=== PATIENT | female | born 1970 | race Caucasian/White ===

== ENCOUNTER 2017-01-12 14:23 | Emergency (ER) | payer MEDICAID ==
[~2017-01-12 14:23] MED LIST: ALPARAZOLAM0.5 MG PO; LISINOPRIL10 MG PO; NEURONTIN100 MG PO; XANAX0.5 MG
[2017-01-12] MEDS ORDERED: GOOD NEIGHBOR200 M1 PO (14:38)
[2017-01-12 15:45] VITALS: BP 189/122
== END 2017-01-12 16:00 | disposition short-term general hospital (02) ==
LOC: ED 14:23
DX: I63.9 Cerebral infarction, unspecified (principal); R29.810 Facial weakness; R53.1 Weakness; I10 Essential (primary) hypertension

== ENCOUNTER 2017-05-01 11:00 | Outpatient (RCR) | payer MEDICAID ==
[~2017-05-01 11:00] MED LIST changes: +GOOD NEIGHBOR200 M1 PO
== END 2017-05-05 | disposition home or self-care (01) ==
LOC: OT
DX: I69.354 Hemiplegia and hemiparesis following cerebral infarction affecting left non-dominant side (principal); I69.812 Visuospatial deficit and spatial neglect following other cerebrovascular disease

== ENCOUNTER 2017-07-31 10:30 | Outpatient (RCR) | payer MEDICAID | END 2017-08-06 | disposition home or self-care (01) | LOC: OT | DX: I69.392 Facial weakness following cerebral infarction (principal) ==

== ENCOUNTER 2017-08-28 13:30 | Outpatient (RCR) | payer MEDICAID | END 2017-08-28 14:00 | disposition home or self-care (01) | LOC: OT 13:30 | DX: I69.954 Hemiplegia and hemiparesis following unspecified cerebrovascular disease affecting left non-dominant side (principal) ==

== ENCOUNTER 2017-10-30 09:00 | Outpatient (RCR) | payer MEDICAID | END 2017-10-30 10:00 | disposition home or self-care (01) | LOC: OT 09:00 | DX: I69.354 Hemiplegia and hemiparesis following cerebral infarction affecting left non-dominant side (principal) ==

== ENCOUNTER → 2017-12-21 | Outpatient (CLI) | payer MEDICAID | LOC: RAD 09:00 | DX: K80.20 Calculus of gallbladder without cholecystitis without obstruction (principal) ==

== ENCOUNTER 2018-07-02 19:14 | Emergency (ER) | payer MEDICAID ==
[~2018-07-02] VITALS: Ht 154.9 cm; Wt 65.9 kg
[2018-07-02 20:27] LABS: EOS # 0.1 (0.04-0.40); EOS % 1.1 % (1.0-5.0); HEMATOCRIT 42.9 % (37.0-47.0); HEMOGLOBIN 14.4 g/dL (12.5-16.0); LYMPH# 2.5 (1.50-4.00); MEAN CELL VOLUME 83 fl (78-100); MEAN CORPUSCULAR HEMOGLOBIN 28 pg (27-31); MEAN CORPUSCULAR HGB CONC 34 g/dL (33-37); MEAN PLATELET VOLUME 10.8 fl (7.4-10.4); MONO # 0.9 (0.20-0.80); NEU # 7.8 (1.40-6.50); PLATELET COUNT 266 K/mm3 (130-400); RED BLOOD COUNT 5.16 M/mm3 (4.10-5.30); RED CELL DISTRIBUTION WIDTH 13.7 % (11.5-14.5); WHITE BLOOD COUNT 11.4 K/mm3 (4.8-10.8)
[2018-07-02 21:05] LABS: CALCIUM 8.8 mg/dL (8.4-10.2); POTASSIUM 3.6 mmol/L (3.6-5.0); TOTAL BILIRUBIN 0.5 mg/dL (0.2-1.3); TOTAL PROTEIN 6.9 g/dL (6.3-8.2)
[2018-07-02 21:20] LABS: PARTIAL THROMBOPLASTIN TIME 22.7 SECONDS (21.0-32.0); PROTHROMBIN TIME 9.8 SECONDS (9.0-12.0)
[2018-07-02 22:30] VITALS: BP 169/106
== END 2018-07-02 22:30 | disposition short-term general hospital (02) ==
LOC: ED 19:14
PROVIDERS: Family Medicine
DX: I63.9 Cerebral infarction, unspecified (principal); G81.94 Hemiplegia, unspecified affecting left nondominant side; R40.2412 Glasgow coma scale score 13-15, at arrival to emergency department; I10 Essential (primary) hypertension; E78.5 Hyperlipidemia, unspecified; Q85.00 Neurofibromatosis, unspecified; Z79.82 Long term (current) use of aspirin; Z79.899 Other long term (current) drug therapy; F17.200 Nicotine dependence, unspecified, uncomplicated
CPT/HCPCS: J0595

== ENCOUNTER 2018-11-24 15:30 | Outpatient (RCR) | payer MEDICAID | END 2018-11-24 16:00 | disposition still patient (30) | LOC: OT 15:30 | DX: I69.354 Hemiplegia and hemiparesis following cerebral infarction affecting left non-dominant side (principal); R29.6 Repeated falls; Z91.81 History of falling ==

== ENCOUNTER 2019-01-18 14:57 | Emergency (ER) | payer MEDICAID ==
[~2019-01-18 14:57] MED LIST changes: -ECOTRIN325 M1; -LOSARTAN POTASS25 MG PO
[2019-01-18 16:27] LABS: URINE APPEARANCE HAZY; URINE BILIRUBIN NEGATIVE (NEGATIVE); URINE COLOR YELLOW; URINE GLUCOSE NEGATIVE (NEGATIVE); URINE KETONE NEGATIVE (NEGATIVE); URINE PROTEIN(semi-quant) TRACE mg/dL (NEGATIVE)
[2019-01-18 16:28] LABS: URINE BLOOD TRACE (NEGATIVE); URINE LEUKOCYTE ESTERASE NEGATIVE (NEGATIVE); URINE NITRATE POSITIVE (NEGATIVE); URINE UROBILINOGEN NORMAL (NORMAL); URINE WBC 0-1 /hpf (0-3)
[2019-01-18] MEDS ORDERED: LOSARTAN POTASS25 MG PO (17:53)
[2019-01-18] MEDS ORDERED: ECOTRIN325 M1 (17:53)
[2019-01-18 17:57] VITALS: BP 119/80
== END 2019-01-18 17:38 | disposition short-term general hospital (02) ==
LOC: ED 14:57
PROVIDERS: Nurse Practitioner
DX: K85.90 Acute pancreatitis without necrosis or infection, unspecified (principal); E86.0 Dehydration; E78.5 Hyperlipidemia, unspecified; Z79.82 Long term (current) use of aspirin; Z88.5 Allergy status to narcotic agent; Z88.0 Allergy status to penicillin; Z87.891 Personal history of nicotine dependence; Z86.73 Personal history of transient ischemic attack (TIA), and cerebral infarction without residual deficits; Z86.69 Personal history of other diseases of the nervous system and sense organs
CPT/HCPCS: J2405; J3010; J7030; Q9967

== ENCOUNTER → 2019-01-18 | Outpatient (CLI) | payer MEDICAID ==
[~2019-01-18] MED LIST changes: +ECOTRIN325 M1; +LOSARTAN POTASS25 MG PO
[2019-01-18 13:01] LABS: EOS # 0.2 (0.04-0.40); EOS % 1.5 % (1.0-5.0); HEMATOCRIT 42.6 % (37.0-47.0); HEMOGLOBIN 14.1 g/dL (12.5-16.0); LYMPH# 1.5 (1.50-4.00); MEAN CELL VOLUME 83 fl (78-100); MEAN CORPUSCULAR HEMOGLOBIN 27 pg (27-31); MEAN CORPUSCULAR HGB CONC 33 g/dL (33-37); MEAN PLATELET VOLUME 9.4 fl (7.4-10.4); MONO # 0.8 (0.20-0.80); PLATELET COUNT 210 K/mm3 (130-400); RED BLOOD COUNT 5.14 M/mm3 (4.10-5.30); RED CELL DISTRIBUTION WIDTH 14.1 % (11.5-14.5); WHITE BLOOD COUNT 10.5 K/mm3 (4.8-10.8)
[2019-01-18 13:16] LABS: ALBUMIN 3.8 g/dL (3.5-5.0); CALCIUM 8.9 mg/dL (8.4-10.2); POTASSIUM 3.6 mmol/L (3.6-5.0); TOTAL BILIRUBIN 0.9 mg/dL (0.2-1.3); TOTAL PROTEIN 6.9 g/dL (6.3-8.2)
== END ==
LOC: RAD 12:36
PROVIDERS: Nurse Practitioner
DX: R10.13 Epigastric pain (principal)

== ENCOUNTER → 2019-01-26 | Outpatient (CLI) | payer MEDICAID ==
[2019-01-18 17:57] VITALS: BP 119/80
[~2019-01-26] MED LIST changes: +ECOTRIN325 M1; +LOSARTAN POTASS25 MG PO
== END ==
LOC: RAD 08:59
DX: M25.562 Pain in left knee (principal)

== ENCOUNTER 2019-03-30 19:49 | Emergency (ER) | payer MEDICAID ==
[~2019-03-30] VITALS: Ht 154.9 cm; Wt 61.4 kg
[2019-03-30] MEDS ORDERED: LIPITOR 80MG80 MG PO (20:06)
[2019-03-30] MEDS ORDERED: ZOLOFT 50MG50 MG PO (20:06)
[2019-03-30 20:36] LABS: EOS # 0.1 (0.04-0.40); EOS % 1.3 % (1.0-5.0); HEMATOCRIT 42.8 % (37.0-47.0); HEMOGLOBIN 14.5 g/dL (12.5-16.0); LYMPH# 1.9 (1.50-4.00); MEAN CELL VOLUME 84 fl (78-100); MEAN CORPUSCULAR HEMOGLOBIN 29 pg (27-31); MEAN CORPUSCULAR HGB CONC 34 g/dL (33-37); MEAN PLATELET VOLUME 10.2 fl (7.4-10.4); MONO # 0.8 (0.20-0.80); NEU # 6.7 (1.40-6.50); PLATELET COUNT 225 K/mm3 (130-400); RED BLOOD COUNT 5.09 M/mm3 (4.10-5.30); RED CELL DISTRIBUTION WIDTH 13.5 % (11.5-14.5); WHITE BLOOD COUNT 9.6 K/mm3 (4.8-10.8)
[2019-03-30 20:41] LABS: ALBUMIN 3.5 g/dL (3.5-5.0)
[2019-03-30 20:42] LABS: SODIUM 141 mmol/L (136-145)
[2019-03-30 20:43] LABS: CALCIUM 9.2 mg/dL (8.3-10.5)
[2019-03-30 20:44] LABS: GLUCOSE 105 mg/dL (65-105); TOTAL PROTEIN 6.7 g/dL (6.4-8.3)
[2019-03-30 20:45] LABS: CARBON DIOXIDE 26 mmol/L (22-29)
[2019-03-30 20:46] LABS: TOTAL BILIRUBIN 0.5 mg/dL (0.2-1.2)
[2019-03-30 20:48] LABS: PROTHROMBIN TIME 9.9 SECONDS (9.0-12.0)
[2019-03-30 20:49] LABS: AST-SGOT 25 U/L (5-34)
[2019-03-30 20:50] LABS: ALT/SGPT 24 U/L (0-55)
[2019-03-30 20:59] LABS: TROPONIN-I < 0.03 ng/mL (<0.030)
[2019-03-30 22:15] VITALS: BP 131/98
== END 2019-03-30 22:15 | disposition home or self-care (01) ==
LOC: ED 19:49
PROVIDERS: Physician Assistant
DX: G43.909 Migraine, unspecified, not intractable, without status migrainosus (principal); F17.210 Nicotine dependence, cigarettes, uncomplicated; Z86.73 Personal history of transient ischemic attack (TIA), and cerebral infarction without residual deficits; Z79.82 Long term (current) use of aspirin; Z88.0 Allergy status to penicillin
CPT/HCPCS: J1885

== ENCOUNTER 2019-04-21 23:31 | Emergency (ER) | payer MEDICAID ==
[~2019-04-21 23:31] MED LIST changes: -CLINDAMYCIN 300MG PO; -CLONIDINE HYDR0.1 MG PO; -PERCOCET 325 MG1 TA2 PO
[2019-04-22] MEDS ORDERED: PERCOCET 325 MG1 TA2 PO (01:26)
[2019-04-22] MEDS ORDERED: CLINDAMYCIN 300MG PO (01:26)
[2019-04-22] MEDS ORDERED: CLONIDINE HYDR0.1 MG PO (02:16)
[2019-04-22 02:24] VITALS: BP 154/98
== END 2019-04-22 02:24 | disposition home or self-care (01) ==
LOC: ED 23:31
DX: K02.9 Dental caries, unspecified (principal); K05.219 Aggressive periodontitis, localized, unspecified severity; I10 Essential (primary) hypertension; G43.909 Migraine, unspecified, not intractable, without status migrainosus; Z87.891 Personal history of nicotine dependence; Z86.73 Personal history of transient ischemic attack (TIA), and cerebral infarction without residual deficits; Z79.82 Long term (current) use of aspirin
CPT/HCPCS: J1885

== ENCOUNTER → 2019-04-21 | Outpatient (CLI) | payer MEDICAID ==
[2019-03-30 22:15] VITALS: BP 131/98
[~2019-04-21] MED LIST changes: +CLINDAMYCIN 300MG PO; +CLONIDINE HYDR0.1 MG PO; -ECOTRIN325 M1; +ECOTRIN325 M1 PO; +LIPITOR 80MG80 MG PO; +PERCOCET 325 MG1 TA2 PO; +ZOLOFT 50MG50 MG PO
== END ==
LOC: RAD 11:28
DX: N91.2 Amenorrhea, unspecified (principal)

== ENCOUNTER 2019-05-06 13:00 | Outpatient (RCR) | payer MEDICAID ==
[~2019-05-06 13:00] MED LIST changes: +CLINDAMYCIN 300MG PO; +CLONIDINE HYDR0.1 MG PO; +PERCOCET 325 MG1 TA2 PO
== END 2019-05-06 13:33 | disposition still patient (30) ==
LOC: PT 13:00
DX: M25.512 Pain in left shoulder (principal)

== ENCOUNTER 2019-05-19 15:00 | Emergency (ER) | payer MEDICAID ==
[~2019-05-19] VITALS: Ht 154.9 cm; Wt 71.8 kg
[2019-05-19 15:38] LABS: EOS # 0.1 (0.04-0.40); EOS % 1.2 % (1.0-5.0); HEMATOCRIT 42.6 % (37.0-47.0); HEMOGLOBIN 14.4 g/dL (12.5-16.0); LYMPH# 1.7 (1.50-4.00); MEAN CELL VOLUME 86 fl (78-100); MEAN CORPUSCULAR HEMOGLOBIN 29 pg (27-31); MEAN CORPUSCULAR HGB CONC 34 g/dL (33-37); MEAN PLATELET VOLUME 9.7 fl (7.4-10.4); MONO # 0.8 (0.20-0.80); NEU # 5.3 (1.40-6.50); PLATELET COUNT 191 K/mm3 (130-400); RED BLOOD COUNT 4.96 M/mm3 (4.10-5.30); WHITE BLOOD COUNT 8.1 K/mm3 (4.8-10.8)
[2019-05-19 15:47] LABS: ALBUMIN 3.7 g/dL (3.5-5.0); POTASSIUM 4.2 mmol/L (3.5-5.1)
[2019-05-19 15:49] LABS: TOTAL PROTEIN 7.3 g/dL (6.4-8.3)
[2019-05-19 15:51] LABS: TOTAL BILIRUBIN 0.7 mg/dL (0.2-1.2)
[2019-05-19 17:43] VITALS: BP 137/90
[2019-05-19] MEDS ORDERED: NORCO 325 MG-51 TA1 PO (17:49)
== END 2019-05-19 18:02 | disposition home or self-care (01) ==
LOC: ED 15:00
PROVIDERS: Nurse Practitioner Family
DX: M25.512 Pain in left shoulder (principal); I10 Essential (primary) hypertension; G43.909 Migraine, unspecified, not intractable, without status migrainosus; Z79.82 Long term (current) use of aspirin; Z91.14 Patient's other noncompliance with medication regimen; Z87.891 Personal history of nicotine dependence; Z86.73 Personal history of transient ischemic attack (TIA), and cerebral infarction without residual deficits
CPT/HCPCS: J1885

== ENCOUNTER 2019-06-14 20:04 | Emergency (ER) | payer MEDICAID ==
[~2019-06-14 20:04] MED LIST changes: +NORCO 325 MG-51 TA1 PO
[2019-06-14] MEDS ORDERED: AMLODIPINE BESYL5 MG PO (20:18)
[2019-06-14 20:41] LABS: EOS # 0.3 (0.04-0.40); EOS % 2.9 % (1.0-5.0); HEMATOCRIT 43.1 % (37.0-47.0); HEMOGLOBIN 14.6 g/dL (12.5-16.0); LYMPH# 2.2 (1.50-4.00); MEAN CELL VOLUME 84 fl (78-100); MEAN CORPUSCULAR HEMOGLOBIN 29 pg (27-31); MEAN CORPUSCULAR HGB CONC 34 g/dL (33-37); MEAN PLATELET VOLUME 9.7 fl (7.4-10.4); MONO # 0.8 (0.20-0.80); NEU # 6.1 (1.40-6.50); PLATELET COUNT 230 K/mm3 (130-400); RED BLOOD COUNT 5.12 M/mm3 (4.10-5.30); RED CELL DISTRIBUTION WIDTH 12.8 % (11.5-14.5); WHITE BLOOD COUNT 9.4 K/mm3 (4.8-10.8)
[2019-06-14 20:51] LABS: ALBUMIN 3.7 g/dL (3.5-5.0); POTASSIUM 3.5 mmol/L (3.5-5.1); SODIUM 141 mmol/L (136-145)
[2019-06-14 20:52] LABS: CALCIUM 9.1 mg/dL (8.3-10.5)
[2019-06-14 20:53] LABS: GLUCOSE 119 mg/dL (65-105)
[2019-06-14 20:54] LABS: TOTAL PROTEIN 6.8 g/dL (6.4-8.3)
[2019-06-14 20:55] LABS: CARBON DIOXIDE 24 mmol/L (22-29); TOTAL BILIRUBIN 0.6 mg/dL (0.2-1.2)
[2019-06-14 20:59] LABS: AST-SGOT 11 U/L (5-34)
[2019-06-14 21:00] LABS: ALT/SGPT 16 U/L (0-55)
[2019-06-14 21:07] LABS: TROPONIN-I < 0.03 ng/mL (<0.030)
[2019-06-14 22:08] LABS: PH-URINE 5.5 (5.0 - 8.0); URINE APPEARANCE HAZY; URINE BILIRUBIN NEGATIVE (NEGATIVE); URINE BLOOD TRACE (NEGATIVE); URINE COLOR YELLOW; URINE GLUCOSE NEGATIVE (NEGATIVE); URINE KETONE NEGATIVE (NEGATIVE); URINE LEUKOCYTE ESTERASE TRACE (NEGATIVE); URINE MUCUS PRESENT (NOT PRESENT); URINE NITRATE NEGATIVE (NEGATIVE); URINE PROTEIN(semi-quant) TRACE mg/dL (NEGATIVE); URINE UROBILINOGEN NORMAL (NORMAL)
[2019-06-14 23:30] VITALS: BP 155/103
== END 2019-06-14 23:30 | disposition short-term general hospital (02) ==
LOC: ED 20:04
PROVIDERS: Nurse Practitioner Family
DX: I63.9 Cerebral infarction, unspecified (principal); I10 Essential (primary) hypertension; F41.9 Anxiety disorder, unspecified; G43.909 Migraine, unspecified, not intractable, without status migrainosus; F17.210 Nicotine dependence, cigarettes, uncomplicated; Z98.890 Other specified postprocedural states
CPT/HCPCS: J2997; J7030

== ENCOUNTER 2019-07-28 11:00 | Outpatient (RCR) | payer MEDICAID ==
[~2019-07-28 11:00] MED LIST changes: +AMLODIPINE BESYL5 MG PO; +CLOPIDOGREL75 M2 PO
== END 2019-08-04 | disposition still patient (30) ==
LOC: OT
DX: I63.411 Cerebral infarction due to embolism of right middle cerebral artery (principal); Z91.81 History of falling

== ENCOUNTER → 2019-08-18 | Outpatient (RCR) | payer MEDICAID | END | disposition still patient (30) | LOC: PT | DX: G81.94 Hemiplegia, unspecified affecting left nondominant side (principal); W19.XXXA Unspecified fall, initial encounter ==

== ENCOUNTER → 2019-08-30 | Outpatient (CLI) | payer MEDICAID ==
[2019-06-30 18:23] VITALS: BP 125/86
[2019-08-30 14:14] LABS: EOS # 0.1 (0.04-0.40); EOS % 0.9 % (1.0-5.0); HEMATOCRIT 44.4 % (37.0-47.0); HEMOGLOBIN 14.8 g/dL (12.5-16.0); LYMPH# 1.5 (1.50-4.00); MEAN CELL VOLUME 84 fl (78-100); MEAN CORPUSCULAR HEMOGLOBIN 28 pg (27-31); MEAN CORPUSCULAR HGB CONC 33 g/dL (33-37); MEAN PLATELET VOLUME 9.5 fl (7.4-10.4); MONO # 0.6 (0.20-0.80); NEU # 5.2 (1.40-6.50); PLATELET COUNT 217 K/mm3 (130-400); RED CELL DISTRIBUTION WIDTH 12.4 % (11.5-14.5); WHITE BLOOD COUNT 7.4 K/mm3 (4.8-10.8)
[2019-08-30 14:29] LABS: POTASSIUM 4.1 mmol/L (3.5-5.1)
[2019-08-30 14:30] LABS: ALBUMIN 4.1 g/dL (3.5-5.0)
[2019-08-30 14:31] LABS: CALCIUM 9.8 mg/dL (8.3-10.5)
[2019-08-30 14:32] LABS: TOTAL PROTEIN 7.3 g/dL (6.4-8.3)
== END ==
LOC: LAB 14:03
PROVIDERS: Physician Assistant
DX: Z13.29 Encounter for screening for other suspected endocrine disorder (principal); Z13.220 Encounter for screening for lipoid disorders; I69.354 Hemiplegia and hemiparesis following cerebral infarction affecting left non-dominant side; K21.9 Gastro-esophageal reflux disease without esophagitis; G89.4 Chronic pain syndrome; I10 Essential (primary) hypertension; Q85.01 Neurofibromatosis, type 1

== ENCOUNTER → 2019-09-07 | Outpatient (CLI) | payer MEDICAID ==
[2019-06-30 18:23] VITALS: BP 125/86
== END ==
LOC: MAMMO 10:32
DX: Z12.31 Encounter for screening mammogram for malignant neoplasm of breast (principal)

== ENCOUNTER 2019-10-04 14:30 | Outpatient (RCR) | payer MEDICAID ==
[2019-06-30 18:23] VITALS: BP 125/86
== END 2019-12-04 | disposition still patient (30) ==
LOC: SPEECH
DX: I63.9 Cerebral infarction, unspecified (principal); I69.354 Hemiplegia and hemiparesis following cerebral infarction affecting left non-dominant side

== ENCOUNTER 2019-10-27 13:00 | Outpatient (RCR) | payer MEDICAID ==
[2019-06-30 18:23] VITALS: BP 125/86
== END 2019-11-22 | disposition still patient (30) ==
LOC: PT
DX: G81.94 Hemiplegia, unspecified affecting left nondominant side (principal); W19.XXXA Unspecified fall, initial encounter

== ENCOUNTER 2019-10-27 13:30 | Outpatient (RCR) | payer MEDICAID ==
[2019-06-30 18:23] VITALS: BP 125/86
== END 2019-11-08 | disposition still patient (30) ==
LOC: OT
DX: I63.411 Cerebral infarction due to embolism of right middle cerebral artery (principal); Z91.81 History of falling

== ENCOUNTER 2019-11-21 12:52 | Emergency (ER) | payer MEDICAID ==
[~2019-11-21] VITALS: Ht 170.2 cm; Wt 74.1 kg
[2019-11-21 13:10] LABS: EOS # 0.1 (0.04-0.40); EOS % 0.9 % (1.0-5.0); HEMATOCRIT 43.4 % (37.0-47.0); HEMOGLOBIN 14.5 g/dL (12.5-16.0); LYMPH# 2.1 (1.50-4.00); MEAN CELL VOLUME 86 fl (78-100); MEAN CORPUSCULAR HEMOGLOBIN 29 pg (27-31); MEAN CORPUSCULAR HGB CONC 33 g/dL (33-37); MEAN PLATELET VOLUME 9.9 fl (7.4-10.4); MONO # 0.8 (0.20-0.80); NEU # 5.8 (1.40-6.50); PLATELET COUNT 204 K/mm3 (130-400); RED BLOOD COUNT 5.05 M/mm3 (4.10-5.30); RED CELL DISTRIBUTION WIDTH 13.4 % (11.5-14.5); WHITE BLOOD COUNT 8.9 K/mm3 (4.8-10.8)
[2019-11-21 13:20] LABS: ALBUMIN 3.9 g/dL (3.5-5.0); POTASSIUM 3.8 mmol/L (3.5-5.1)
[2019-11-21 13:22] LABS: CALCIUM 9.2 mg/dL (8.3-10.5)
[2019-11-21 13:23] LABS: TOTAL PROTEIN 6.8 g/dL (6.4-8.3)
[2019-11-21 13:25] LABS: TOTAL BILIRUBIN 0.5 mg/dL (0.2-1.2)
[2019-11-21 14:36] VITALS: BP 131/92
== END 2019-11-21 14:48 | disposition home or self-care (01) ==
LOC: ED 12:52
PROVIDERS: Nurse Practitioner Primary Care
DX: G45.9 Transient cerebral ischemic attack, unspecified (principal); I10 Essential (primary) hypertension; F41.9 Anxiety disorder, unspecified; F17.210 Nicotine dependence, cigarettes, uncomplicated; Z79.02 Long term (current) use of antithrombotics/antiplatelets; Z86.73 Personal history of transient ischemic attack (TIA), and cerebral infarction without residual deficits

== ENCOUNTER → 2019-12-01 | Outpatient (CLI) | payer MEDICAID ==
[2019-11-21 14:36] VITALS: BP 131/92
== END ==
LOC: RAD 11-23 08:30
DX: G93.81 Temporal sclerosis (principal); I67.82 Cerebral ischemia; G45.9 Transient cerebral ischemic attack, unspecified
CPT/HCPCS: A9585

== ENCOUNTER → 2020-01-31 | Outpatient (CLI) | payer MEDICAID ==
[2020-02-03 02:27] LABS: BETA-2GPI IGG AABS <20.0 CU (<=20.0); BETA-2GPI IGM AABS <20.0 CU (<=20.0)
== END ==
LOC: LAB 15:21
PROVIDERS: Nurse Practitioner
DX: I63.411 Cerebral infarction due to embolism of right middle cerebral artery (principal); G43.009 Migraine without aura, not intractable, without status migrainosus

== ENCOUNTER → 2020-02-16 | Outpatient (CLI) | payer OTHER, MEDICAID | LOC: RAD 17:59 | DX: M79.89 Other specified soft tissue disorders (principal) ==

== ENCOUNTER → 2020-03-27 | Outpatient (CLI) | payer MEDICAID ==
[2020-02-23 20:02] VITALS: BP 121/96
[~2020-03-27] MED LIST changes: +CYMBALTA60 M1 PO; +VITAMIN D3 COM1 EACH PO
[2020-03-27 14:05] LABS: EOS # 0.1 (0.04-0.40); EOS % 1.2 % (1.0-5.0); HEMATOCRIT 44.5 % (37.0-47.0); LYMPH# 1.7 (1.50-4.00); MEAN CELL VOLUME 86 fl (78-100); MEAN CORPUSCULAR HEMOGLOBIN 29 pg (27-31); MEAN CORPUSCULAR HGB CONC 34 g/dL (33-37); MEAN PLATELET VOLUME 9.7 fl (7.4-10.4); MONO # 1.1 (0.20-0.80); NEU # 7.7 (1.40-6.50); PLATELET COUNT 256 K/mm3 (130-400); RED BLOOD COUNT 5.15 M/mm3 (4.10-5.30); RED CELL DISTRIBUTION WIDTH 13.5 % (11.5-14.5); WHITE BLOOD COUNT 10.7 K/mm3 (4.8-10.8)
[2020-03-27 14:14] LABS: POTASSIUM 4.1 mmol/L (3.5-5.1)
[2020-03-27 14:15] LABS: CALCIUM 9.1 mg/dL (8.3-10.5)
[2020-03-27 14:16] LABS: TOTAL PROTEIN 6.8 g/dL (6.4-8.3)
[2020-03-27 14:18] LABS: TOTAL BILIRUBIN 0.4 mg/dL (0.2-1.2)
[2020-03-28 04:46] LABS: LUTENIZING HORMONE 18.3 mIU/mL (())
[2020-03-28 04:47] LABS: FOLLICLE STIMULATING HORMONE 19.8 mIU/mL (())
== END ==
LOC: LAB 13:50
PROVIDERS: Physician Assistant
DX: I63.9 Cerebral infarction, unspecified (principal); F41.9 Anxiety disorder, unspecified; G89.4 Chronic pain syndrome; N91.2 Amenorrhea, unspecified

== ENCOUNTER → 2020-11-15 | Outpatient (CLI) | payer MEDICARE, MEDICAID ==
[2020-02-23 20:02] VITALS: BP 121/96
[2020-11-15 10:25] LABS: EOS # 0.1 (0.04-0.40); EOS % 1.7 % (1.0-5.0); HEMATOCRIT 47.3 % (37.0-47.0); HEMOGLOBIN 15.3 g/dL (12.5-16.0); MEAN CELL VOLUME 86 fl (78-100); MEAN CORPUSCULAR HEMOGLOBIN 28 pg (27-31); MEAN CORPUSCULAR HGB CONC 32 g/dL (33-37); MEAN PLATELET VOLUME 9.5 fl (7.4-10.4); MONO # 0.7 (0.20-0.80); NEU # 5.3 (1.40-6.50); PLATELET COUNT 239 K/mm3 (130-400); RED CELL DISTRIBUTION WIDTH 14.3 % (11.5-14.5); WHITE BLOOD COUNT 8.2 K/mm3 (4.8-10.8)
[2020-11-15 11:00] LABS: ALBUMIN 3.8 g/dL (3.5-5.0); POTASSIUM 4.1 mmol/L (3.5-5.1)
[2020-11-15 11:01] LABS: CALCIUM 8.9 mg/dL (8.3-10.5)
[2020-11-15 11:02] LABS: TOTAL PROTEIN 6.9 g/dL (6.4-8.3)
[2020-11-15 11:04] LABS: TOTAL BILIRUBIN 0.4 mg/dL (0.2-1.2)
== END ==
LOC: LAB 10:03
PROVIDERS: Physician Assistant
DX: Z13.29 Encounter for screening for other suspected endocrine disorder (principal); I10 Essential (primary) hypertension; I63.9 Cerebral infarction, unspecified; E78.5 Hyperlipidemia, unspecified; R73.9 Hyperglycemia, unspecified; Z83.3 Family history of diabetes mellitus; Z87.19 Personal history of other diseases of the digestive system

== ENCOUNTER 2020-11-23 15:41 | Emergency (ER) | payer MEDICARE, MEDICAID ==
[2020-11-23 17:19] LABS: EOS # 0.1 (0.04-0.40); EOS % 0.5 % (1.0-5.0); HEMATOCRIT 46.2 % (37.0-47.0); HEMOGLOBIN 15.3 g/dL (12.5-16.0); LYMPH# 1.8 (1.50-4.00); MEAN CELL VOLUME 84 fl (78-100); MEAN CORPUSCULAR HEMOGLOBIN 28 pg (27-31); MEAN CORPUSCULAR HGB CONC 33 g/dL (33-37); MEAN PLATELET VOLUME 9.8 fl (7.4-10.4); MONO # 0.8 (0.20-0.80); NEU # 7.5 (1.40-6.50); PLATELET COUNT 235 K/mm3 (130-400); RED BLOOD COUNT 5.48 M/mm3 (4.10-5.30); RED CELL DISTRIBUTION WIDTH 13.9 % (11.5-14.5); WHITE BLOOD COUNT 10.2 K/mm3 (4.8-10.8)
[2020-11-23 17:29] LABS: ALBUMIN 3.9 g/dL (3.5-5.0)
[2020-11-23 17:30] LABS: CALCIUM 9.2 mg/dL (8.3-10.5)
[2020-11-23 17:31] LABS: TOTAL PROTEIN 6.9 g/dL (6.4-8.3)
[2020-11-23 17:33] LABS: TOTAL BILIRUBIN 0.5 mg/dL (0.2-1.2)
[2020-11-23 18:33] LABS: PH-URINE 5.5 (5.0 - 8.0); URINE APPEARANCE CLEAR; URINE BILIRUBIN NEGATIVE (NEGATIVE); URINE BLOOD 250 ery/uL (NEGATIVE); URINE COLOR YELLOW; URINE GLUCOSE NEGATIVE (NEGATIVE); URINE KETONE NEGATIVE (NEGATIVE); URINE LEUKOCYTE ESTERASE NEGATIVE (NEGATIVE); URINE NITRATE NEGATIVE (NEGATIVE); URINE PROTEIN(semi-quant) TRACE mg/dL (NEGATIVE); URINE UROBILINOGEN NORMAL (NORMAL); URINE WBC 0-1 /hpf (0-3)
[2020-11-23 19:15] VITALS: BP 131/91
== END 2020-11-23 19:15 | disposition home or self-care (01) ==
LOC: ED 15:41
PROVIDERS: Nurse Practitioner
DX: R10.9 Unspecified abdominal pain (principal); G89.29 Other chronic pain; R11.10 Vomiting, unspecified; I10 Essential (primary) hypertension; F41.9 Anxiety disorder, unspecified; F32.9 Major depressive disorder, single episode, unspecified; F17.210 Nicotine dependence, cigarettes, uncomplicated; Z86.73 Personal history of transient ischemic attack (TIA), and cerebral infarction without residual deficits; Z90.49 Acquired absence of other specified parts of digestive tract; Z79.02 Long term (current) use of antithrombotics/antiplatelets
CPT/HCPCS: J2405; J3010; J7030

== ENCOUNTER 2021-01-15 10:14 | Outpatient (RCR) | payer MEDICARE, MEDICAID ==
[2021-01-30] MEDS ORDERED: ATORVASTATIN CA40 MG PO (17:24)
[2021-01-30] MEDS ORDERED: CLONAZEPAM2 MG PO (17:25)
[2021-01-30] MEDS ORDERED: ESCITALOPRAM5 MG PO (17:25)
[2021-01-30] MEDS ORDERED: GABAPENTIN TAB600 MG PO (17:26)
[2021-01-30] MEDS ORDERED: EMGALITY120 MG/1 M SQ (17:26)
[2021-01-30] MEDS ORDERED: BACLOFEN20 MG PO (17:27)
== END 2021-01-29 17:00 ==
LOC: PT 10:14
DX: I63.9 Cerebral infarction, unspecified (principal)

== ENCOUNTER 2021-01-22 11:00 | Outpatient (RCR) | payer MEDICARE, MEDICAID ==
[2021-01-30] MEDS ORDERED: ATORVASTATIN CA40 MG PO (17:24)
[2021-01-30] MEDS ORDERED: ESCITALOPRAM5 MG PO (17:25)
[2021-01-30] MEDS ORDERED: CLONAZEPAM2 MG PO (17:25)
[2021-01-30] MEDS ORDERED: EMGALITY120 MG/1 M SQ (17:26)
[2021-01-30] MEDS ORDERED: GABAPENTIN TAB600 MG PO (17:26)
[2021-01-30] MEDS ORDERED: BACLOFEN20 MG PO (17:27)
== END 2021-01-29 17:00 | disposition home or self-care (01) ==
LOC: SPEECH 11:00
DX: R41.89 Other symptoms and signs involving cognitive functions and awareness (principal)

== ENCOUNTER 2021-01-30 12:51 | Emergency (ER) | payer MEDICARE, MEDICAID ==
[2021-01-30 13:21] LABS: BASO # 0.02 (0.02-0.10); EOS # 0.21 (0.04-0.40); EOS % 2.4 % (1.0-5.0); HEMATOCRIT 45.5 % (37.0-47.0); HEMOGLOBIN 15.2 g/dL (12.5-16.0); LYMPH# 1.96 (1.50-4.00); MEAN CELL VOLUME 87 fl (78-100); MEAN CORPUSCULAR HEMOGLOBIN 29 pg (27-31); MEAN CORPUSCULAR HGB CONC 33 g/dL (33-37); MEAN PLATELET VOLUME 9.4 fl (7.4-10.4); MONO # 0.72 (0.20-0.80); NEU # 5.81 (1.40-6.50); PLATELET COUNT 215 K/mm3 (130-400); RED BLOOD COUNT 5.24 M/mm3 (4.10-5.30); WHITE BLOOD COUNT 8.8 K/mm3 (4.8-10.8)
[2021-01-30 13:33] LABS: ALBUMIN 3.8 g/dL (3.5-5.0)
[2021-01-30 13:34] LABS: POTASSIUM 4.4 mmol/L (3.5-5.1); PROTHROMBIN TIME 10.2 SECONDS (9.0-12.0); SODIUM 139 mmol/L (136-145)
[2021-01-30 13:35] LABS: CALCIUM 9.2 mg/dL (8.3-10.5)
[2021-01-30 13:36] LABS: GLUCOSE 94 mg/dL (65-105); TOTAL PROTEIN 6.7 g/dL (6.4-8.3)
[2021-01-30 13:37] LABS: CARBON DIOXIDE 27 mmol/L (22-29)
[2021-01-30 13:38] LABS: TOTAL BILIRUBIN 0.5 mg/dL (0.2-1.2)
[2021-01-30 13:41] LABS: AST-SGOT 18 U/L (5-34)
[2021-01-30 13:43] LABS: ALT/SGPT 23 U/L (0-55)
[2021-01-30 14:08] LABS: TROPONIN-I < 0.03 ng/mL (<0.030)
[2021-01-30 14:18] LABS: URINE APPEARANCE CLEAR; URINE BILIRUBIN NEGATIVE (NEGATIVE); URINE BLOOD NEGATIVE (NEGATIVE); URINE COLOR YELLOW; URINE GLUCOSE NEGATIVE (NEGATIVE); URINE KETONE NEGATIVE (NEGATIVE); URINE LEUKOCYTE ESTERASE TRACE (NEGATIVE); URINE NITRATE NEGATIVE (NEGATIVE); URINE PROTEIN(semi-quant) TRACE mg/dL (NEGATIVE); URINE UROBILINOGEN NORMAL (NORMAL)
[2021-01-30 15:15] VITALS: BP 136/90
[2021-01-30] MEDS ORDERED: ATORVASTATIN CA40 MG PO (17:24)
[2021-01-30] MEDS ORDERED: ESCITALOPRAM5 MG PO (17:25)
[2021-01-30] MEDS ORDERED: CLONAZEPAM2 MG PO (17:25)
[2021-01-30] MEDS ORDERED: EMGALITY120 MG/1 M SQ (17:26)
[2021-01-30] MEDS ORDERED: GABAPENTIN TAB600 MG PO (17:26)
[2021-01-30] MEDS ORDERED: BACLOFEN20 MG PO (17:27)
== END 2021-01-30 13:15 | disposition short-term general hospital (02) ==
LOC: ED 12:51
PROVIDERS: Physician Assistant
DX: I63.9 Cerebral infarction, unspecified (principal); F17.290 Nicotine dependence, other tobacco product, uncomplicated; Z88.0 Allergy status to penicillin; Z79.02 Long term (current) use of antithrombotics/antiplatelets
CPT/HCPCS: J2997

== ENCOUNTER → 2021-03-08 | Outpatient (CLI) | payer MEDICARE, MEDICAID ==
[~2021-03-08] MED LIST changes: +ATORVASTATIN CA40 MG PO; +BACLOFEN20 MG PO; +CLONAZEPAM2 MG PO; +COMBIVENT RESPI1 SPR IH; +EMGALITY120 MG/1 M SQ; +ESCITALOPRAM5 MG PO; +ESZOPICLONE3 MG PO; +GABAPENTIN TAB600 MG PO; +NORCO 325 MG-7.1 TA1 PO; +PANTOPRAZOLE SO40 MG PO; +TOPIRAMATE100 MG PO; +TRAMADOL 50 MG TAB PO; +ZOFRAN ODT4 MG PO
== END ==
LOC: LAB 14:24
DX: N39.0 Urinary tract infection, site not specified (principal)

== ENCOUNTER → 2021-03-29 | Outpatient (CLI) | payer MEDICARE, MEDICAID | LOC: RAD 10:43 | DX: I77.74 Dissection of vertebral artery (principal) | CPT/HCPCS: Q9967 ==

== ENCOUNTER 2021-04-23 11:41 | Emergency (ER) | payer MEDICARE, MEDICAID ==
[~2021-04-23 11:41] MED LIST changes: -COMBIVENT RESPI1 SPR IH; -ESZOPICLONE3 MG PO; -NORCO 325 MG-7.1 TA1 PO; -PANTOPRAZOLE SO40 MG PO; -TOPIRAMATE100 MG PO; -TRAMADOL 50 MG TAB PO; -ZOFRAN ODT4 MG PO
[2021-04-23 12:41] LABS: ALBUMIN 3.8 g/dL (3.5-5.0)
[2021-04-23 12:42] LABS: POTASSIUM 3.9 mmol/L (3.5-5.1); SODIUM 140 mmol/L (136-145)
[2021-04-23 12:43] LABS: CALCIUM 9.3 mg/dL (8.3-10.5)
[2021-04-23 12:44] LABS: GLUCOSE 105 mg/dL (65-105); TOTAL PROTEIN 6.6 g/dL (6.4-8.3)
[2021-04-23 12:45] LABS: CARBON DIOXIDE 18 mmol/L (22-29)
[2021-04-23 12:46] LABS: TOTAL BILIRUBIN 0.4 mg/dL (0.2-1.2)
[2021-04-23 12:49] LABS: AST-SGOT 10 U/L (5-34)
[2021-04-23 12:50] LABS: ALT/SGPT 10 U/L (0-55)
[2021-04-23 12:51] LABS: LIPASE 27 U/L (8-78)
[2021-04-23 13:17] LABS: URINE APPEARANCE HAZY; URINE BILIRUBIN NEGATIVE (NEGATIVE); URINE BLOOD 250 ery/uL (NEGATIVE); URINE COLOR YELLOW; URINE GLUCOSE NEGATIVE (NEGATIVE); URINE KETONE NEGATIVE (NEGATIVE); URINE NITRATE NEGATIVE (NEGATIVE); URINE PROTEIN(semi-quant) NEGATIVE (NEGATIVE); URINE UROBILINOGEN NORMAL (NORMAL)
[2021-04-23 13:18] LABS: URINE LEUKOCYTE ESTERASE NEGATIVE (NEGATIVE)
[2021-04-23 13:21] LABS: URINE MUCUS PRESENT (NOT PRESENT); URINE WBC 0-1 /hpf (0-3)
[2021-04-23 13:24] LABS: TROPONIN-I < 0.03 ng/mL (<0.030)
[2021-04-23 13:44] LABS: BASO # 0.04 (0.02-0.10); EOS # 0.23 (0.04-0.40); EOS % 2.7 % (1.0-5.0); HEMATOCRIT 44.7 % (37.0-47.0); HEMOGLOBIN 15.3 g/dL (12.5-16.0); LYMPH# 1.68 (1.50-4.00); MEAN CELL VOLUME 85 fl (78-100); MEAN CORPUSCULAR HEMOGLOBIN 29 pg (27-31); MEAN CORPUSCULAR HGB CONC 34 g/dL (33-37); MEAN PLATELET VOLUME 9.7 fl (7.4-10.4); MONO # 0.77 (0.20-0.80); NEU # 5.66 (1.40-6.50); PLATELET COUNT 223 K/mm3 (130-400); RED BLOOD COUNT 5.27 M/mm3 (4.10-5.30); RED CELL DISTRIBUTION WIDTH 12.6 % (11.5-14.5); WHITE BLOOD COUNT 8.4 K/mm3 (4.8-10.8)
[2021-04-23 15:02] VITALS: BP 126/85
[2021-04-23] MEDS ORDERED: COMBIVENT RESPI1 SPR IH (16:10)
[2021-04-23] MEDS ORDERED: NORCO 325 MG-7.1 TA1 PO (16:11)
[2021-04-23] MEDS ORDERED: TOPIRAMATE100 MG PO (16:13)
== END 2021-04-23 15:13 | disposition home or self-care (01) ==
LOC: ED 11:41
PROVIDERS: Physician Assistant
DX: R53.1 Weakness (principal); R51.9 Headache, unspecified; R31.9 Hematuria, unspecified; I10 Essential (primary) hypertension; F41.9 Anxiety disorder, unspecified; F32.9 Major depressive disorder, single episode, unspecified; Z79.899 Other long term (current) drug therapy

== ENCOUNTER → 2021-05-17 | Outpatient (CLI) | payer MEDICARE, MEDICAID ==
[~2021-05-17] MED LIST changes: +COMBIVENT RESPI1 SPR IH; +ESZOPICLONE3 MG PO; +NORCO 325 MG-7.1 TA1 PO; +PANTOPRAZOLE SO40 MG PO; +TOPIRAMATE100 MG PO; +TRAMADOL 50 MG TAB PO; +ZOFRAN ODT4 MG PO
== END ==
LOC: RAD 05-10 10:00
DX: K85.90 Acute pancreatitis without necrosis or infection, unspecified (principal); K38.8 Other specified diseases of appendix
CPT/HCPCS: Q9967

== ENCOUNTER → 2021-06-12 | Outpatient (CLI) | payer MEDICARE, MEDICAID | LOC: MAMMO 10:52 | DX: Z12.31 Encounter for screening mammogram for malignant neoplasm of breast (principal) ==

== ENCOUNTER 2021-06-18 10:08 | Emergency (ER) | payer MEDICARE, MEDICAID ==
[~2021-06-18] VITALS: Ht 154.9 cm; Wt 81.9 kg
[~2021-06-18 10:08] MED LIST changes: -ESZOPICLONE3 MG PO; -PANTOPRAZOLE SO40 MG PO; -TRAMADOL 50 MG TAB PO; -ZOFRAN ODT4 MG PO
[2021-06-18] MEDS ORDERED: PANTOPRAZOLE SO40 MG PO (10:24)
[2021-06-18] MEDS ORDERED: BACLOFEN20 MG PO (10:25)
[2021-06-18] MEDS ORDERED: ESZOPICLONE3 MG PO (10:25)
[2021-06-18 10:41] LABS: BASO # 0.04 (0.02-0.10); EOS # 0.14 (0.04-0.40); HEMATOCRIT 49.7 % (37.0-47.0); HEMOGLOBIN 16.4 g/dL (12.5-16.0); LYMPH# 1.31 (1.50-4.00); MEAN CELL VOLUME 86 fl (78-100); MEAN CORPUSCULAR HEMOGLOBIN 28 pg (27-31); MEAN CORPUSCULAR HGB CONC 33 g/dL (33-37); MEAN PLATELET VOLUME 9.6 fl (7.4-10.4); MONO # 1.21 (0.20-0.80); PLATELET COUNT 210 K/mm3 (130-400); RED CELL DISTRIBUTION WIDTH 12.4 % (11.5-14.5); WHITE BLOOD COUNT 14.1 K/mm3 (4.8-10.8)
[2021-06-18 10:52] LABS: ALBUMIN 3.8 g/dL (3.5-5.0); SODIUM 137 mmol/L (136-145)
[2021-06-18 10:53] LABS: CALCIUM 9.8 mg/dL (8.3-10.5)
[2021-06-18 10:55] LABS: GLUCOSE 106 mg/dL (65-105); TOTAL PROTEIN 7.1 g/dL (6.4-8.3)
[2021-06-18 10:56] LABS: CARBON DIOXIDE 25 mmol/L (22-29); TOTAL BILIRUBIN 0.5 mg/dL (0.2-1.2)
[2021-06-18 11:00] LABS: AST-SGOT 35 U/L (5-34)
[2021-06-18 11:01] LABS: ALT/SGPT 36 U/L (0-55)
[2021-06-18 11:47] LABS: LIPASE > 1200 U/L (8-78)
[2021-06-18 13:16] LABS: URINE APPEARANCE CLEAR; URINE COLOR YELLOW; URINE GLUCOSE NEGATIVE (NEGATIVE); URINE KETONE NEGATIVE (NEGATIVE); URINE PROTEIN(semi-quant) TRACE mg/dL (NEGATIVE)
[2021-06-18 13:17] LABS: URINE BILIRUBIN NEGATIVE (NEGATIVE); URINE BLOOD TRACE (NEGATIVE); URINE LEUKOCYTE ESTERASE NEGATIVE (NEGATIVE); URINE MUCUS PRESENT (NOT PRESENT); URINE NITRATE NEGATIVE (NEGATIVE); URINE UROBILINOGEN NORMAL (NORMAL); URINE WBC 0-1 /hpf (0-3)
[2021-06-18 15:50] VITALS: BP 124/83
== END 2021-06-18 15:00 | disposition other institution (70) ==
LOC: ED 10:08
PROVIDERS: Physician Assistant
DX: K85.90 Acute pancreatitis without necrosis or infection, unspecified (principal); D72.829 Elevated white blood cell count, unspecified; G43.909 Migraine, unspecified, not intractable, without status migrainosus; I10 Essential (primary) hypertension; F32.9 Major depressive disorder, single episode, unspecified; F41.9 Anxiety disorder, unspecified; F17.210 Nicotine dependence, cigarettes, uncomplicated; Z90.49 Acquired absence of other specified parts of digestive tract; Z86.73 Personal history of transient ischemic attack (TIA), and cerebral infarction without residual deficits; Z88.0 Allergy status to penicillin; Z88.1 Allergy status to other antibiotic agents; Z79.899 Other long term (current) drug therapy; Z79.02 Long term (current) use of antithrombotics/antiplatelets
CPT/HCPCS: J1630; J2270; J7030; Q9967

== ENCOUNTER 2021-06-18 14:30 | Inpatient (IN) | payer MEDICARE, MEDICAID ==
[~2021-06-18] VITALS: Ht 154.9 cm; Wt 78.0 kg
[~2021-06-18 14:30] MED LIST changes: +ESZOPICLONE3 MG PO; +PANTOPRAZOLE SO40 MG PO
--- NOTE | 2021-06-18 15:05 | NUR ---
TRANSPORT TO ROOM 204 PER W/C FROM ER. ACCOMPANIES FOR ADMIT. PATIENT ALERT AND TALKATIVE. INT INTACT TO RT AC. STANDBY ASSIST TO BATHROOM AND THEN TO BED. GAIT SLIGHTLY UNSTEADY. HX STROKE WITH LT SIDE WEAKNESS. USES CANE AT HOME AND ALSO HAS BRACE FOR LLE AND LT FOOT.
--- NOTE | 2021-06-18 16:32 | NUR ---
ADMISSION ASSESSMENT COMPLETE. PATIENT GOES TO THERAPY AT [facility]IA [facility]. FACILITY NOTIFIED REGARDING ADMIT AND THAT PATIENT WILL NOT ARRIVE FOR APPOINTMENT. LIVES AT HOME WITH OF 9 YEARS. THEY HAVE 3 DOGS. WORKS AND ALSO IMMERSES SELF IN VIDEO GAMES. PATIENT VERBALIZES DISLIKE THAT HE LEFT HOSPITAL TO EAT PRIOR TO PLAYING A SCHEDULED ONLINE GAME [employer]. SHE FEELS SAFE AT HOME AND DENIES ANY ENVIRONMENTAL HAZARDS THAT IMPACT HER MOBILITY. WEARS A BRACE TO LLE AND LT FOOT. WEAKNESS TO LT SIDE FROM STROKE. HAS LIMITED MOVEMENT OF FINGERS TO LT HAND- CAN MAKE A CRITICAL CARE UNIT NURSE, BUT UNABLE TO RELEASE IT. ALSO LOST PERIPHERAL VISION TO BOTH EYES WITH STROKE. BECAUSE OF THIS, HER SPEECH LANGUAGE PATHOLOGIST PRN'S LICENSE WAS TAKEN AWAY. CURRENTLY IN PROCESS OF HAVING ALL TEETH REMOVED FOR DENTURES. HAS THREE TEETH IN PLACE; OTHERS REMOVED FROM BOTTOM LAST WEEK. USES 2L OXYGEN WHILE SLEEPING.
[2021-06-18 18:03] VITALS: BP 113/82
--- NOTE | 2021-06-18 19:00 | NUR ---
Report received from Dia JACQUES. Patient rests in bed with eyes closed. Respirations with ease.
--- NOTE | 2021-06-18 19:02 | NUR ---
REPORT PROVIDED TO RAISA JACQUES.
--- NOTE | 2021-06-18 20:30 | NUR ---
Patient awake and reports abdominal pain achy all over 9/10 and getting a little nauseated. Zofran 4m SIV and Mso4 4mg IV reviewed and given. Reports pain decreased to 3/10 and is resting in bed, calm affect. Alert to self, place, situation but not month or day of week. Patient able to clinical laboratory science professor with left hand but not able to release clinical laboratory science professor without assist. Folded wash cloth placed left hand per patient request. Mouth swab and chapstick given for dry mouth and lips.
[2021-06-18 22:09] VITALS: BP 104/74
--- NOTE | 2021-06-18 22:44 | NUR ---
Patient asking when she can eat again. Explained NPO through the night and will have repeat labs in am and that eating may create increased inflammation, pain, and nausea. Patient voices understanding/acceptance.
--- NOTE | 2021-06-18 23:08 | NUR ---
Patient resting on right side with eyes closed. Respirations with ease.
--- NOTE | 2021-06-19 01:30 | NUR ---
Patient resting until this time. Up to the bathroom and back to bed. Reports abdominal pain 7/10 and morphine 4 mg given SIV.
[2021-06-19 02:00] VITALS: BP 112/80
--- NOTE | 2021-06-19 05:23 | NUR ---
Patient resting with eyes closed. Respirations with ease.
[2021-06-19 05:51] VITALS: BP 114/56
--- NOTE | 2021-06-19 05:52 | NUR ---
Patient reports stabbing intermittent abdominal pain 6/10 on pain scale. Morphine 4 mg given SIV.
--- NOTE | 2021-06-19 07:00 | NUR ---
Report received from SAWYER Mi. Pt resting in bed with eye closed. Wakes easily to her name. Reports that her pain is "doing alright". Denies need for PRN pain medication at this time. Call light in reach.
[2021-06-19 07:02] LABS: BASO # 0.02 (0.02-0.10); EOS # 0.07 (0.04-0.40); EOS % 0.9 % (1.0-5.0); HEMATOCRIT 41.1 % (37.0-47.0); HEMOGLOBIN 13.4 g/dL (12.5-16.0); MEAN CELL VOLUME 88 fl (78-100); MEAN CORPUSCULAR HEMOGLOBIN 29 pg (27-31); MEAN CORPUSCULAR HGB CONC 33 g/dL (33-37); MEAN PLATELET VOLUME 9.7 fl (7.4-10.4); MONO # 0.63 (0.20-0.80); PLATELET COUNT 183 K/mm3 (130-400); RED BLOOD COUNT 4.67 M/mm3 (4.10-5.30); RED CELL DISTRIBUTION WIDTH 12.5 % (11.5-14.5); WHITE BLOOD COUNT 7.6 K/mm3 (4.8-10.8)
[2021-06-19 07:29] LABS: ALBUMIN 3.2 g/dL (3.5-5.0)
[2021-06-19 07:30] LABS: POTASSIUM 4.3 mmol/L (3.5-5.1)
[2021-06-19 07:31] LABS: CALCIUM 8.7 mg/dL (8.3-10.5)
[2021-06-19 07:32] LABS: TOTAL PROTEIN 5.8 g/dL (6.4-8.3)
[2021-06-19 07:34] LABS: TOTAL BILIRUBIN 0.5 mg/dL (0.2-1.2)
--- NOTE | 2021-06-19 09:00 | NUR ---
Pt reporting Abd pain at 7/10. Reports that the pain is sharp and is all around her abdomen, "like a tire". Pt up to shower with PRODUCT/DEVICE TECHNOLOGIST. Provided with PRN morphine after she returned to bed. Call light in reach. Bed alarm on.
[2021-06-19 09:29] VITALS: BP 125/87
[2021-06-19 14:03] VITALS: BP 102/65
--- NOTE | 2021-06-19 16:30 | NUR ---
Pt appropriately used call light for assistance to bathroom. Pt assisted with one person and cane to restroom. Pt a little unsteady on her feet. Gait belt in place. Pt states that she just spoke wiht her mother and that her mother "hurt her feelings" because her mother did not call to check on her. Pt reports that her pain worsened after talking to her mother because she was crying. PRN morphine provided. NS infusing to R. AC. Pt reports that she is enjoying having clear liquids; she thinks some of her pain is related to not eating for 5 days. Call light in reach. Bed alarm in place.
--- NOTE | 2021-06-19 17:00 | NUR ---
Report received from Khushbu JACQUES. Patient sitting up in bed eating clear liquid supper. IV fluids infusing NS at 125 ML/HR. Site patent to Olaf AC. Rates pain 5/10 at this time which is tolerable for her. Discussed NPO status after Midnight for test. Denies wants or needs at this time.
[2021-06-19 18:12] VITALS: BP 122/85
--- NOTE | 2021-06-19 19:30 | NUR ---
Requests Morphine and Zofran. Pain 04/06 to mid abdominal region, radiating around to R side of back. MSO4 2 MG given SIVP and 4 MG Zofran. IVF continues at 125 ML/HR. Site patent to R AC. Assessment completed. Kali rogers. Patient reports having an appetite now.
--- NOTE | 2021-06-19 19:56 | NUR ---
Rests quietly on L side. Reports pain 5/10 which she reports is tolerable.
[2021-06-19 22:07] VITALS: BP 111/77
--- NOTE | 2021-06-19 23:32 | NUR ---
Up to BR with assist. Back to bed. Rating abdominal pain 04/06. Morphine 2 Mg given SIVP. States she is having trouble sleeping. "nervous about tomorrow". Provider notified, awaiting orders.
--- NOTE | 2021-06-19 23:43 | NUR ---
Klonopin 1 MG taken at this time. Rates pain 3/10 at this time.
--- NOTE | 2021-06-19 23:57 | NUR ---
Patient now NPO for test tomorrow. New bag of IVF hung to run at 125 ML/HR. Site patent to Olaf WILLIAMSON
[2021-06-20 02:01] VITALS: BP 114/77
--- NOTE | 2021-06-20 03:51 | NUR ---
Calls for pain medication. Rates pain 05/07. MSO4 given SIVP at this time.
--- NOTE | 2021-06-20 04:15 | NUR ---
Rests with eyes closed.
--- NOTE | 2021-06-20 05:36 | NUR ---
Up to BR with 1:1 assist. Denies need for analgesic at this time.
[2021-06-20 05:42] VITALS: BP 118/81
--- NOTE | 2021-06-20 07:03 | NUR ---
Report to Caitlin JACQUES.
[2021-06-20 07:36] LABS: BASO # 0.01 (0.02-0.10); EOS # 0.04 (0.04-0.40); EOS % 0.6 % (1.0-5.0); HEMATOCRIT 36.1 % (37.0-47.0); HEMOGLOBIN 11.8 g/dL (12.5-16.0); LYMPH# 1.19 (1.50-4.00); MEAN CELL VOLUME 88 fl (78-100); MEAN CORPUSCULAR HEMOGLOBIN 29 pg (27-31); MEAN CORPUSCULAR HGB CONC 33 g/dL (33-37); MEAN PLATELET VOLUME 9.9 fl (7.4-10.4); MONO # 0.49 (0.20-0.80); NEU # 4.82 (1.40-6.50); PLATELET COUNT 150 K/mm3 (130-400); RED BLOOD COUNT 4.11 M/mm3 (4.10-5.30); RED CELL DISTRIBUTION WIDTH 12.5 % (11.5-14.5); WHITE BLOOD COUNT 6.6 K/mm3 (4.8-10.8)
[2021-06-20 07:58] LABS: ALBUMIN 2.9 g/dL (3.5-5.0); POTASSIUM 3.9 mmol/L (3.5-5.1)
[2021-06-20 08:00] LABS: CALCIUM 8.4 mg/dL (8.3-10.5)
[2021-06-20 08:01] LABS: TOTAL PROTEIN 4.9 g/dL (6.4-8.3)
[2021-06-20 08:03] LABS: TOTAL BILIRUBIN 0.3 mg/dL (0.2-1.2)
--- NOTE | 2021-06-20 08:25 | NUR ---
Patient resting in chair. Ambulated SBA with walker from bed to bathroom. AM cares complete with minimal assistance. A&Ox4, drowsy, c/o pain a 7 out of 10 on a numeric pain scale. Decribes pain at sharp in upper abd. Reports this is constant and pain she has been having. Slept well last night. States, "They need to hurry up and get my scan done." All questions and concerns addressed at this time. Chair in locked position. Call light within reach.
[2021-06-20 10:55] VITALS: BP 145/90
[2021-06-20 13:40] VITALS: BP 135/88
--- NOTE | 2021-06-20 15:49 | NUR ---
This nurse called Dina BECK to schedule a F/U with Dr. Barnett. Next available appointment for this patient would be September 18, 2021 at 11am. Tahmina (scheduling) confirmed this is her next available appointment but will place the patient on a waiting list. The patient would be called if an appointment comes available.
[2021-06-20] MEDS ORDERED: NORCO 325 MG-7.1 TA1 PO (16:26)
[2021-06-20] MEDS ORDERED: ZOFRAN ODT4 MG PO (16:27)
--- NOTE | 2021-06-20 17:00 | NUR ---
Patient discharged home with . A&Ox4, RA, c/o generalized pain yet reports she has chronic pain. Discharge instructions reviewed with patient. All questions and concerns addressed at this time. Prescription send to [facility], the patient's prefered pharmacy. All personal belongings sent with patient. Escorted by w/c with and CHIEF VENDOR QUALITY
== END 2021-06-20 17:00 | disposition home or self-care (01) | DRG 440 ==
LOC: MED/SURG 14:30
PROVIDERS: Physician Assistant; ADMIT Nurse Practitioner Family
DX: K85.90 Acute pancreatitis without necrosis or infection, unspecified (principal); Q85.00 Neurofibromatosis, unspecified; F17.210 Nicotine dependence, cigarettes, uncomplicated; Z79.891 Long term (current) use of opiate analgesic; Z86.73 Personal history of transient ischemic attack (TIA), and cerebral infarction without residual deficits; Z90.49 Acquired absence of other specified parts of digestive tract; Z88.0 Allergy status to penicillin; Z88.6 Allergy status to analgesic agent
CPT/HCPCS: C9113; J1650; J2270; J2405; J7030

== ENCOUNTER → 2021-07-11 | Outpatient (CLI) | payer MEDICARE, MEDICAID ==
[~2021-07-11] MED LIST changes: +TRAMADOL 50 MG TAB PO; +ZOFRAN ODT4 MG PO
== END ==
LOC: RAD 14:48
DX: K85.90 Acute pancreatitis without necrosis or infection, unspecified (principal); Z90.49 Acquired absence of other specified parts of digestive tract

== ENCOUNTER 2021-08-15 13:27 | Emergency (ER) | payer MEDICARE, MEDICAID ==
[~2021-08-15 13:27] MED LIST changes: -TRAMADOL 50 MG TAB PO
[2021-08-15] MEDS ORDERED: TRAMADOL 50 MG TAB PO (13:36)
[2021-08-15 14:13] LABS: BASO # 0.04 K/mm3 (0.02-0.10); EOS # 0.16 K/mm3 (0.04-0.40); HEMATOCRIT 41.9 % (37.0-47.0); HEMOGLOBIN 14.1 g/dL (12.5-16.0); LYMPH# 1.36 K/mm3 (1.50-4.00); MEAN CELL VOLUME 86 fl (78-100); MEAN CORPUSCULAR HEMOGLOBIN 29 pg (27-31); MEAN CORPUSCULAR HGB CONC 34 g/dL (33-37); MEAN PLATELET VOLUME 9.6 fl (7.4-10.4); MONO # 0.63 K/mm3 (0.20-0.80); PLATELET COUNT 191 K/mm3 (130-400); RED BLOOD COUNT 4.88 M/mm3 (4.10-5.30); RED CELL DISTRIBUTION WIDTH 12.9 % (11.5-14.5)
[2021-08-15 14:15] LABS: ALBUMIN 3.8 g/dL (3.5-5.0)
[2021-08-15 14:16] LABS: CALCIUM 9.3 mg/dL (8.3-10.5)
[2021-08-15 14:17] LABS: TOTAL PROTEIN 6.6 g/dL (6.4-8.3)
[2021-08-15 14:19] LABS: TOTAL BILIRUBIN 0.6 mg/dL (0.2-1.2)
[2021-08-15 15:17] VITALS: BP 122/89
== END 2021-08-15 15:07 | disposition home or self-care (01) ==
LOC: ED 13:27
PROVIDERS: Nurse Practitioner
DX: K85.90 Acute pancreatitis without necrosis or infection, unspecified (principal); D72.829 Elevated white blood cell count, unspecified; R94.5 Abnormal results of liver function studies; I10 Essential (primary) hypertension; F41.9 Anxiety disorder, unspecified; F32.A Depression, unspecified; G43.909 Migraine, unspecified, not intractable, without status migrainosus; Z79.899 Other long term (current) drug therapy
CPT/HCPCS: J7030

== ENCOUNTER → 2021-10-01 | Outpatient (CLI) | payer MEDICARE, MEDICAID ==
[~2021-10-01] MED LIST changes: +ATORVASTATIN CA20 MG PO; +BUSPAR 15MG TAB15 MG PO; +CETIRIZINE HCL10 MG PO; +ESCITALOPRAM10 MG PO; +HYDROXYZINE HCL25 M1 PO; +LEVETIRACETAM500 M2 PO; +LEXAPRO20 M1 PO; +NICOTINE21 MG/24 H TD; +OXYCODONE-ACET1 EAC1 PO; +TRAMADOL 50 MG TAB PO; +TRIAMCINOLONE AC0.13 TP; +VARENICLINE TART1 MG PO; +ZOLPIDEM TART10 MG PO; +ZOLPIDEM TART12.5 MG PO
== END ==
LOC: RAD 16:42
DX: M25.552 Pain in left hip (principal); M25.519 Pain in unspecified shoulder

== ENCOUNTER → 2022-01-27 | Outpatient (CLI) | payer MEDICARE, MEDICAID ==
[~2022-01-27] MED LIST changes: -ATORVASTATIN CA20 MG PO; -BUSPAR 15MG TAB15 MG PO; -CETIRIZINE HCL10 MG PO; -ESCITALOPRAM10 MG PO; -HYDROXYZINE HCL25 M1 PO; -LEVETIRACETAM500 M2 PO; -LEXAPRO20 M1 PO; -NICOTINE21 MG/24 H TD; -OXYCODONE-ACET1 EAC1 PO; -TRIAMCINOLONE AC0.13 TP; -VARENICLINE TART1 MG PO; -ZOLPIDEM TART10 MG PO; -ZOLPIDEM TART12.5 MG PO
== END ==
LOC: RAD 07:30
DX: R13.10 Dysphagia, unspecified (principal)

== ENCOUNTER 2022-02-25 17:19 | Emergency (ER) | payer MEDICARE, MEDICAID ==
[~2022-02-25] VITALS: Ht 154.9 cm; Wt 79.4 kg
[2022-02-25] MEDS ORDERED: ATORVASTATIN CA20 MG PO (17:55)
[2022-02-25 17:56] LABS: BASO # 0.04 K/mm3 (0.02-0.10); EOS # 0.09 K/mm3 (0.04-0.40); EOS % 0.9 % (1.0-5.0); HEMATOCRIT 43.5 % (37.0-47.0); HEMOGLOBIN 14.5 g/dL (12.5-16.0); LYMPH# 1.82 K/mm3 (1.50-4.00); MEAN CELL VOLUME 85 fl (78-100); MEAN CORPUSCULAR HEMOGLOBIN 28 pg (27-31); MEAN CORPUSCULAR HGB CONC 33 g/dL (33-37); MEAN PLATELET VOLUME 9.6 fl (7.4-10.4); MONO # 0.83 K/mm3 (0.20-0.80); NEU # 7.36 K/mm3 (1.40-6.50); PLATELET COUNT 195 K/mm3 (130-400); RED BLOOD COUNT 5.11 M/mm3 (4.10-5.30); WHITE BLOOD COUNT 10.2 K/mm3 (4.8-10.8)
[2022-02-25] MEDS ORDERED: NICOTINE21 MG/24 H TD (17:56)
[2022-02-25] MEDS ORDERED: CETIRIZINE HCL10 MG PO (17:56)
[2022-02-25] MEDS ORDERED: VARENICLINE TART1 MG PO (17:56)
[2022-02-25] MEDS ORDERED: TRIAMCINOLONE AC0.13 TP (17:57)
[2022-02-25] MEDS ORDERED: ZOLPIDEM TART12.5 MG PO (17:57)
[2022-02-25] MEDS ORDERED: ESCITALOPRAM10 MG PO (17:57)
[2022-02-25] MEDS ORDERED: BUSPAR 15MG TAB15 MG PO (17:59)
[2022-02-25 18:07] LABS: ALBUMIN 3.9 g/dL (3.5-5.0); POTASSIUM 3.9 mmol/L (3.5-5.1)
[2022-02-25 18:08] LABS: PROTHROMBIN TIME 10.3 SECONDS (9.0-12.0)
[2022-02-25 18:09] LABS: CALCIUM 9.3 mg/dL (8.3-10.5)
[2022-02-25 18:10] LABS: TOTAL PROTEIN 6.8 g/dL (6.4-8.3)
[2022-02-25 18:12] LABS: TOTAL BILIRUBIN 0.5 mg/dL (0.2-1.2)
[2022-02-25 21:49] VITALS: BP 110/75
== END 2022-02-25 21:49 | disposition short-term general hospital (02) ==
LOC: ED 17:19
PROVIDERS: Physician Assistant
DX: I63.9 Cerebral infarction, unspecified (principal); F17.210 Nicotine dependence, cigarettes, uncomplicated

== ENCOUNTER → 2022-04-30 | Outpatient (CLI) | payer MEDICARE, MEDICAID ==
[~2022-04-30] MED LIST changes: +ATORVASTATIN CA20 MG PO; +BUSPAR 15MG TAB15 MG PO; +CETIRIZINE HCL10 MG PO; +ESCITALOPRAM10 MG PO; +NICOTINE21 MG/24 H TD; +TRIAMCINOLONE AC0.13 TP; +VARENICLINE TART1 MG PO; +ZOLPIDEM TART12.5 MG PO
== END ==
LOC: RAD 13:19
DX: S89.92XA Unspecified injury of left lower leg, initial encounter (principal); W19.XXXA Unspecified fall, initial encounter

== ENCOUNTER 2022-06-12 10:38 | Emergency (ER) | payer MEDICARE, MEDICAID ==
[2022-06-12 10:45] VITALS: BP 128/86
[2022-06-12] MEDS ORDERED: ATORVASTATIN CA40 MG PO (10:51)
[2022-06-12] MEDS ORDERED: ZOLPIDEM TART10 MG PO (10:52)
[2022-06-12] MEDS ORDERED: HYDROXYZINE HCL25 M1 PO (10:52)
[2022-06-12] MEDS ORDERED: OXYCODONE-ACET1 EAC1 PO (10:52)
[2022-06-12] MEDS ORDERED: LEVETIRACETAM500 M2 PO (10:52)
[2022-06-12] MEDS ORDERED: LEXAPRO20 M1 PO (11:16)
== END 2022-06-12 11:31 | disposition home or self-care (01) ==
LOC: ED 10:38
DX: F32.A Depression, unspecified (principal); E66.9 Obesity, unspecified

== ENCOUNTER → 2022-08-07 | Outpatient (CLI) | payer MEDICARE, MEDICAID ==
[~2022-08-07] MED LIST changes: +HYDROXYZINE HCL25 M1 PO; +LEVETIRACETAM500 M2 PO; +LEXAPRO20 M1 PO; +OXYCODONE-ACET1 EAC1 PO; +ZOLPIDEM TART10 MG PO
== END ==
LOC: AMSURD 13:52
DX: N62 Hypertrophy of breast (principal)

== ENCOUNTER → 2024-01-25 | Day surgery (SDC) | payer MEDICARE, MEDICAID ==
[~2024-01-25] MED LIST changes: +fentaNYL 100 MCG/2 ML VIAL ONE
== END | disposition home or self-care (01) ==
LOC: MSO 10:05
DX: Z12.11 Encounter for screening for malignant neoplasm of colon (principal); D12.5 Benign neoplasm of sigmoid colon; K57.30 Diverticulosis of large intestine without perforation or abscess without bleeding; F17.210 Nicotine dependence, cigarettes, uncomplicated; E66.9 Obesity, unspecified
CPT/HCPCS: 00811; J2704; J3010; J7120

== ENCOUNTER 2024-05-05 20:33 | Emergency (ER) | payer MEDICARE ==
[~2024-05-05] VITALS: Wt 75.0 kg
[~2024-05-05 20:33] MED LIST changes: -fentaNYL 100 MCG/2 ML VIAL ONE
[2024-05-05 21:01] LABS: BASO # 0.02 K/mm3 (0.02-0.10); EOS # 0.13 K/mm3 (0.04-0.40); EOS % 1.4 % (1.0-5.0); HEMATOCRIT 45.8 % (37.0-47.0); HEMOGLOBIN 15.1 g/dL (12.5-16.0); LYMPH# 2.43 K/mm3 (1.50-4.00); MEAN CELL VOLUME 82 fl (78-100); MEAN CORPUSCULAR HEMOGLOBIN 27 pg (27-31); MEAN CORPUSCULAR HGB CONC 33 g/dL (33-37); MEAN PLATELET VOLUME 9.9 fl (7.4-10.4); MONO # 0.86 K/mm3 (0.20-0.80); NEU # 6.08 K/mm3 (1.40-6.50); PLATELET COUNT 257 K/mm3 (130-400); RED BLOOD COUNT 5.56 M/mm3 (4.10-5.30); RED CELL DISTRIBUTION WIDTH 13.2 % (11.5-14.5); WHITE BLOOD COUNT 9.6 K/mm3 (4.8-10.8)
[2024-05-05 21:07] LABS: ALBUMIN 3.9 g/dL (3.5-5.0); SODIUM 141 mmol/L (136-145)
[2024-05-05 21:09] LABS: CALCIUM 9.7 mg/dL (8.3-10.5)
[2024-05-05 21:10] LABS: GLUCOSE 100 mg/dL (65-105); TOTAL PROTEIN 6.9 g/dL (6.4-8.3)
[2024-05-05 21:11] LABS: CARBON DIOXIDE 25 mmol/L (22-29)
[2024-05-05 21:12] LABS: TOTAL BILIRUBIN 0.4 mg/dL (0.2-1.2)
[2024-05-05 21:15] LABS: AST-SGOT 11 U/L (5-34)
[2024-05-05 21:16] LABS: ALT/SGPT 13 U/L (0-55)
[2024-05-05 21:21] LABS: ALCOHOL IN-HOUSE < 10 mg/dL (<10)
[2024-05-05 21:29] LABS: D-DIMER 0.25 mg/L FEU (0.15-0.50); PROTHROMBIN TIME 10.1 SECONDS (9.0-12.0)
[2024-05-05] MEDS ORDERED: Iohexol 350 - 100 ML VIAL IV ONE (22:19)
[2024-05-05 22:45] LABS: URINE APPEARANCE CLEAR (CLEAR); URINE COLOR YELLOW (YELLOW)
[2024-05-05 22:46] LABS: URINE BILIRUBIN NEGATIVE (NEGATIVE); URINE BLOOD NEGATIVE (NEGATIVE); URINE GLUCOSE NEGATIVE (NEGATIVE); URINE KETONE NEGATIVE (NEGATIVE); URINE LEUKOCYTE ESTERASE TRACE (NEGATIVE); URINE NITRATE NEGATIVE (NEGATIVE); URINE PROTEIN(semi-quant) NEGATIVE (NEGATIVE); URINE WBC 0-1 /hpf (0-3)
[2024-05-05] MEDS ORDERED: Tenecteplase 50 MG/10 ML VIAL (after reconstitution) IV ONE (23:00)
[2024-05-06 00:10] VITALS: BP 106/82
== END 2024-05-06 00:10 | disposition short-term general hospital (02) ==
LOC: ED 20:33
PROVIDERS: Nurse Practitioner
DX: I63.9 Cerebral infarction, unspecified (principal); E66.9 Obesity, unspecified; F17.200 Nicotine dependence, unspecified, uncomplicated; Z79.02 Long term (current) use of antithrombotics/antiplatelets; Z79.82 Long term (current) use of aspirin; Z68.30 Body mass index [BMI] 30.0-30.9, adult
CPT/HCPCS: J3101; Q9967

== ENCOUNTER → 2024-08-31 | Outpatient (CLI) | payer MEDICARE, MEDICAID ==
[2024-08-31 15:19] LABS: BASO # 0.03 K/mm3 (0.02-0.10); EOS # 0.15 K/mm3 (0.04-0.40); EOS % 1.6 % (1.0-5.0); HEMATOCRIT 44.7 % (37.0-47.0); HEMOGLOBIN 14.8 g/dL (12.5-16.0); LYMPH# 1.79 K/mm3 (1.50-4.00); MEAN CELL VOLUME 83 fl (78-100); MEAN CORPUSCULAR HEMOGLOBIN 28 pg (27-31); MEAN CORPUSCULAR HGB CONC 33 g/dL (33-37); MEAN PLATELET VOLUME 9.3 fl (7.4-10.4); MONO # 0.67 K/mm3 (0.20-0.80); NEU # 6.71 K/mm3 (1.40-6.50); PLATELET COUNT 278 K/mm3 (130-400); RED BLOOD COUNT 5.37 M/mm3 (4.10-5.30); RED CELL DISTRIBUTION WIDTH 12.1 % (11.5-14.5); WHITE BLOOD COUNT 9.4 K/mm3 (4.8-10.8)
[2024-08-31 15:30] LABS: CALCIUM 9.5 mg/dL (8.3-10.5)
[2024-08-31 15:33] LABS: TOTAL BILIRUBIN 0.6 mg/dL (0.2-1.2)
[2024-08-31 23:38] LABS: HEPATITIS C VIRUS ANTIBODY Nonreactive (Nonreactiv)
== END ==
LOC: MAMMO 14:51
PROVIDERS: Physician Assistant
DX: Z12.31 Encounter for screening mammogram for malignant neoplasm of breast (principal); Z11.59 Encounter for screening for other viral diseases; Z13.29 Encounter for screening for other suspected endocrine disorder; Z13.1 Encounter for screening for diabetes mellitus; I10 Essential (primary) hypertension; E78.5 Hyperlipidemia, unspecified; K90.9 Intestinal malabsorption, unspecified; Z98.890 Other specified postprocedural states

== ENCOUNTER → 2024-11-04 | Outpatient (CLI) | payer MEDICARE, MEDICAID ==
[~2024-11-04] MED LIST changes: +Gadoterate 20 ML VIAL IV ONE
== END ==
LOC: RAD 12:57
DX: G43.719 Chronic migraine without aura, intractable, without status migrainosus (principal); I63.411 Cerebral infarction due to embolism of right middle cerebral artery; Q85.00 Neurofibromatosis, unspecified; I77.70 Dissection of unspecified artery; C72.30 Malignant neoplasm of unspecified optic nerve
CPT/HCPCS: A9575

== ENCOUNTER → 2024-12-08 | Outpatient (CLI) | payer MEDICARE, MEDICAID ==
[~2024-12-08] MED LIST changes: -Gadoterate 20 ML VIAL IV ONE
[2024-12-08 14:56] LABS: ALBUMIN 3.9 g/dL (3.5-5.0)
[2024-12-08 14:57] LABS: CALCIUM 9.1 mg/dL (8.3-10.5)
[2024-12-08 14:59] LABS: TOTAL PROTEIN 7.1 g/dL (6.4-8.3)
[2024-12-08 15:01] LABS: TOTAL BILIRUBIN 0.5 mg/dL (0.2-1.2)
[2024-12-08 15:21] LABS: PH-URINE 5.5 (5.0 - 8.0); URINE APPEARANCE SLIGHTLY CLOUDY (CLEAR); URINE COLOR DARK YELLOW (YELLOW); URINE GLUCOSE NEGATIVE (NEGATIVE); URINE PROTEIN(semi-quant) 1+ (NEGATIVE)
[2024-12-08 15:22] LABS: URINE BILIRUBIN NEGATIVE (NEGATIVE); URINE BLOOD NEGATIVE (NEGATIVE); URINE KETONE NEGATIVE (NEGATIVE); URINE LEUKOCYTE ESTERASE NEGATIVE (NEGATIVE); URINE MUCUS PRESENT (NOT PRESENT); URINE NITRATE NEGATIVE (NEGATIVE)
== END ==
LOC: LAB 12-06 14:56
PROVIDERS: Physician Assistant
DX: E78.5 Hyperlipidemia, unspecified (principal); K90.9 Intestinal malabsorption, unspecified; R30.0 Dysuria